=== PATIENT | female | born 1995 | race Caucasian/White ===

== ENCOUNTER 2017-01-02 14:35 | Outpatient (CLI) | payer OTHER ==
[2017-01-02 15:10] LABS: eGFR (African) > 60; eGFR (Non-African) > 60
--- NOTE | 2017-01-02 20:29 | Diagnostic Imaging Report ---
VIDHYA BARBER~ [facility] [address] [facility] [address] [place], [place]. [address] ~ ~ ~ ~ Report Submission Date: Jan 02, 2017 3:16:38 PM CDT Patient ~ Study Name: GEORGETTE WADE ~ Date: Jan 02, 2017 2:53:36 PM CDT ~ Modality Type: US Gender: F ~ Description: US ABD LIMITED : 97 ~ Institution: [facility] Physician: VIDHYA BARBER ~ ~ ~ ~ Ultrasound abdomen History: PAIN AFTER EATING, NAUSEA Multiple grayscale and color Doppler images of the abdomen are submitted Findings: No comparison studies Limited views of the pancreas are within normal limits the liver is heterogeneous in echogenicity and measures 12.7 cm portal venous flow is antegrade to the liver Study limited by bowel gas. The gallbladder is distended,. Its wall measures 2 mm, within normal limits, no pericholecystic fluid is present. No obvious gallstones. Common bile duct measures 2 mm, within normal limits Tthe right kidney measures 10.9 x 4.2 x 4.5 cm There is no right hydronephrosis Impression: 1. No gallstones. No pericholecystic fluid. Gallbladder wall thickness is within normal limits. Bowel gas limits the study. 2. No biliary dilatation. Hepatic steatosis 3. No right hydronephrosis ~ Electronically signed on Jan 02, 2017 3:16:38 PM CDT by: Leni CLARK
== END 2017-01-02 14:36 ==
LOC: LAB 14:35
PROVIDERS: ATTEND Physician Assistant
DX: R10.13 Epigastric pain (principal); R10.11 Right upper quadrant pain
CPT/HCPCS: 36415; 76705; 80053

== ENCOUNTER 2017-08-26 16:11 | Outpatient (CLI) | payer OTHER | END 2017-08-26 16:12 | LOC: LABRHC 16:11 | PROVIDERS: ATTEND Family Medicine | DX: N89.8 Other specified noninflammatory disorders of vagina (principal) | CPT/HCPCS: 87491; 87591 ==

== ENCOUNTER 2018-07-07 11:47 | Outpatient (CLI) | payer OTHER | END 2018-07-07 11:50 | LOC: LABRHC 11:47 | PROVIDERS: ATTEND Family Medicine | DX: Z12.4 Encounter for screening for malignant neoplasm of cervix (principal); Z11.3 Encounter for screening for infections with a predominantly sexual mode of transmission | CPT/HCPCS: 87491; 87591; 88148; G0143 ==

== ENCOUNTER 2018-11-12 14:46 | Outpatient (CLI) | payer OTHER ==
--- NOTE | 2018-11-19 11:09 | OP Clinic Progress Note ---
SUBJECTIVE: Emilie Sheehan is a 23-year-old female who presented today for follow up of right plantar fasciitis/heel pain and arch pain. She admits that she has been doing her stretching exercises 2 and sometimes 3 times a day, as well as using the Superfeet inserts. She states that she feels a little bit of discomfort in the arch with the right insert; however, she overall feels better walking in those inserts. She does admit that she has a little bit less pain in the morning when she first begins walking, however, she states that she is still feeling overall about the same amount of pain especially, I think, by the end of the day. The patient states that she is having 6 out of 10 pain. She is nervous about a shot but feels that she would like to have an injection to see if this helps, as all of her efforts conservatively so far are not giving her very much relief. She does not admit to any fevers, chills, nausea, vomiting, shortness of breath or chest pain. OBJECTIVE: VITAL SIGNS: Heart rate 77, R: 18, BP: 145/78. Pain is 6 out of 10. VASCULAR: There are 2+ DP and PT pulses of the right foot. Capillary refill time is less than 3 seconds to the toes of the right foot. No edema is noted of the right foot. DERMATOLOGIC: There is no erythema. No open lesions and no ecchymosis noted of the right foot. There are no other skin lesions noted either. I do not note any hyperkeratosis at this time. MUSCULOSKELETAL: Pain on palpation is noted to the central and plantar medial portion of the origin of the plantar fascia and extending part way up the arch about a third [address] the way. The main area of pain is at the plantar medial calcaneal tubercle where there is a moderate amount of pain today. Ankle range of motion is 5 to 10 degrees with the knee flexed from previous exam. NEUROLOGIC: Light touch sensation is intact to the toes of the right foot. From the previous exam, there is a negative Tinel's sign of the right ankle at the tarsal tunnel. PSYCHIATRIC: Mental status is grossly normal. Affect is normal. ASSESSMENT: 1. Plantar fasciitis of right foot. M72.2. 2. Gastrocnemius equinus of right lower extremity. M21.6X1. The patient is to continue stretching exercises 4 times a day, as well as frozen water bottle, and Superfeet at all times standing. The patient will give it some time to see if the arches feel better in the Superfeet. She states overall they were feeling better with the inserts, so we will continue that. PROCEDURE #1: Risks and benefits were discussed regarding a steroid injection of the right plantar fascia and these include, but are not limited to, bleeding and infection and the patient has agreed by both written and verbal consent to go forward at this time for a right plantar fascia steroid injection. An alcohol swab was utilized to clean the patient's right plantar medial heal and an injection consisting of 4 mL of a combination of 1.5 mL of 2% lidocaine plain, 1.5 mL of 0.5% bupivacaine plain, 0.5 mL of dexamethasone 4 mg per mL, and 0.5 mL of Kenalog 40 mg per mL was injected into the right plantar fascia region at the origin. The site was then wiped with a gauze and a Band-Aid. The patient tolerated the procedure well. The patient admitted immediate relief in the heel when standing, likely more so due to the anesthetic that was injected as part of the injection. The patient will monitor this and was warned regarding a possible steroid flare and possible increase in pain once the local anesthetic wears off and between the time it wears off and the steroid begins to take effect in the next 48 hours or so. The patient did not have any other questions or concerns and tolerated the procedure well. PLAN: Return to the [facility] in 3 weeks or 4 weeks. The patient will let me know how she is doing at that time. We will consider an MRI if she is not improving with the steroid injection she received. We may need to consider either a surgical release of half the plantar fascia or consider a [place] procedure with a graft potentially. The patient understands that we will see how she does next time and go from there. EDUARDO
== END 2018-11-12 14:48 ==
LOC: POD 14:46
PROVIDERS: ATTEND Podiatrist Foot & Ankle Surgery
DX: M72.2 Plantar fascial fibromatosis (principal); M21.6X1 Other acquired deformities of right foot
CPT/HCPCS: 20550; J1100; J3301; J3490

== ENCOUNTER 2019-01-26 16:39 | Outpatient (CLI) | payer OTHER ==
--- NOTE | 2019-01-26 17:49 | Diagnostic Imaging Report ---
SHAHLA QUEZADA [facility] [address] [facility] [address] [place], [place]. [address] Report Submission Date: Jan 26, 2019 5:41:10 PM CDT Patient Study Name: SHY MERRITT Date: Jan 26, 2019 5:28:32 PM CDT Modality Type: DX Gender: F Description: CHEST 1VIEW : [birth year] Institution: [facility] Physician: SHAHLA QUEZADA Chest, one view History: Dyspnea and history of asthma and bronchitis. Findings: The heart size is normal. Left lower lobe infiltrate is present. Trace left pleural effusion is present. The right lung is clear. Impression: 1. Left lower lobe infiltrate with trace left pleural effusion Electronically signed on Jan 26, 2019 5:41:10 PM CDT by: Yann CLARK
--- NOTE | 2019-01-27 10:27 | Diagnostic Imaging Report ---
TOMER RAGSDALE [facility] [address] [facility] [address] [place], [place]. [address] Report Submission Date: Jan 26, 2019 5:02:48 PM CDT Patient Study Name: GEORGETTE WADE Date: Jan 26, 2019 4:45:57 PM CDT Modality Type: DX Gender: F Description: FOOT 3 VIEWS OR MORE : 97 Institution: [facility] Physician: TOMER RAGSDALE EXAMINATION: FOOT 3 VIEWS OR MORE HISTORY: LEFT FOOT PAIN COMPARISON: None FINDINGS: The osseous structures are intact and well aligned without acute fracture or dislocation. The joint spaces are preserved. Bone density is normal. No soft tissue swelling is seen. IMPRESSION: No acute fracture or dislocation identified. Electronically signed on Jan 26, 2019 5:02:48 PM CDT by: Robert CLARK
== END 2019-01-26 16:44 | disposition home or self-care (01) ==
LOC: RAD 16:39
PROVIDERS: ATTEND Podiatrist Foot & Ankle Surgery
DX: M79.672 Pain in left foot (principal)
CPT/HCPCS: 73630